=== PATIENT | male | born 1960 | race Caucasian/White ===

== ENCOUNTER 2020-05-07 07:40 | Outpatient (CLI) | payer BC, SELFPAY ==
[2020-05-07 08:26] LABS: Alanine Aminotransferase 33 U/L (4-50); Albumin Level 3.9 g/dL (3.5-5.1); Alkaline Phosphatase 47 U/L (38-126); Anion Gap 8.9 mmol/L (7-16); Aspartate Amino Transferase 35 U/L (17-59); Bilirubin,Total 0.5 mg/dL (0.2-1.3); Blood Urea Nitrogen 14 mg/dL (9-20); Calcium 8.6 mg/dL (8.4-10.2); Carbon Dioxide 26 mmol/L (22-30); Chloride 106 mmol/L (98-107); Cholesterol 201 mg/dL (0-200); Estimated Glomerular Filt Rate > 60; Glucose 94 mg/dL (75-110); HDL Direct 56 mg/dL; Potassium 3.9 mmol/L (3.4-5.0); Sodium 137 mmol/L (137-145); Triglycerides 106 mg/dL (<150)
[2020-05-07 08:37] LABS: LDL Cholesterol Direct 112 mg/dL
== END 2020-05-07 07:41 | disposition home or self-care (01) ==
PROVIDERS: PCP Family Medicine; Visit Provider Internal Medicine Cardiovascular Disease
DX: E78.5 Hyperlipidemia, unspecified (principal)
CPT/HCPCS: 36415; 80053; 80061

== ENCOUNTER 2021-03-21 06:52 | Outpatient (CLI) | payer BC, SELFPAY ==
[2021-03-21 09:33] LABS: Alanine Aminotransferase 19 U/L (4-50); Albumin Level 3.9 g/dL (3.5-5.1); Alkaline Phosphatase 47 U/L (38-126); Anion Gap 6 mmol/L (8-16); Aspartate Amino Transferase 29 U/L (17-59); Bilirubin,Total 0.5 mg/dL (0.2-1.3); Blood Urea Nitrogen 14 mg/dL (9-20); Calcium 9.2 mg/dL (8.4-10.2); Carbon Dioxide 27 mmol/L (22-30); Chloride 107 mmol/L (98-107); Cholesterol 197 mg/dL (0-200); Estimated Glomerular Filt Rate > 60; Glucose 89 mg/dL (75-110); HDL Direct 54 mg/dL; Sodium 140 mmol/L (137-145); Triglycerides 85 mg/dL (<150)
[2021-03-21 09:44] LABS: LDL Cholesterol Direct 106 mg/dL
== END 2021-03-21 06:53 | disposition home or self-care (01) ==
PROVIDERS: PCP Family Medicine; Visit Provider Physician Assistant
DX: E78.5 Hyperlipidemia, unspecified (principal); I10 Essential (primary) hypertension; Z12.5 Encounter for screening for malignant neoplasm of prostate
CPT/HCPCS: 36415; 80053; 80061; 84153; G0103

== ENCOUNTER 2022-05-27 06:51 | Outpatient (CLI) | payer BC, SELFPAY ==
[2022-05-27 07:31] LABS: Alanine Aminotransferase 36 U/L (6-50); Albumin Level 4.1 g/dL (3.5-5.1); Alkaline Phosphatase 53 U/L (38-126); Anion Gap 6 mmol/L (8-16); Aspartate Amino Transferase 32 U/L (17-59); Bilirubin,Total 0.8 mg/dL (0.2-1.3); Blood Urea Nitrogen 16 mg/dL (9-20); Calcium 9.4 mg/dL (8.4-10.2); Carbon Dioxide 28 mmol/L (22-30); Chloride 102 mmol/L (98-107); Cholesterol 240 mg/dL (0-200); Estimated Glomerular Filt Rate > 60; Glucose 90 mg/dL (65-110); HDL Direct 58 mg/dL; Magnesium 2.3 mg/dL (1.6-2.3); Potassium 4.1 mmol/L (3.4-5.0); Sodium 136 mmol/L (137-145); Triglycerides 139 mg/dL (<150)
[2022-05-27 07:45] LABS: LDL Cholesterol Direct 127 mg/dL
== END 2022-05-27 06:52 | disposition home or self-care (01) ==
LOC: ANHLAB 06:53
PROVIDERS: PCP Family Medicine; Visit Provider Internal Medicine Cardiovascular Disease
DX: E78.5 Hyperlipidemia, unspecified (principal)
CPT/HCPCS: 36415; 80053; 80061; 83735

== ENCOUNTER 2022-12-31 06:50 | Outpatient (CLI) | payer BC, SELFPAY ==
--- NOTE | ~2022-12-31 | XR_ITS ---
Left Knee Technique: AP, lateral, and sunrise views were obtained. Clinical History: Pain Findings: No fracture or dislocation is seen. Osseous alignment is anatomic. Minimal patellar spurrin g noted. Soft tissues are unremarkable. No joint effusion is seen. Impression: Minimal patellar spurring. Reviewed, dictated and finalized at location . Impression: Minimal patellar spurring.
[2022-12-31 07:53] LABS: Alanine Aminotransferase 28 U/L (6-50); Alkaline Phosphatase 63 U/L (38-126); Anion Gap 4 mmol/L (8-16); Aspartate Amino Transferase 28 U/L (17-59); Bilirubin,Total 0.6 mg/dL (0.2-1.3); Blood Urea Nitrogen 16 mg/dL (9-20); Calcium 8.7 mg/dL (8.4-10.2); Carbon Dioxide 28 mmol/L (22-30); Chloride 106 mmol/L (98-107); Cholesterol 201 mg/dL (0-200); Estimated Glomerular Filt Rate > 60; Glucose 87 mg/dL (65-110); HDL Direct 54 mg/dL; Potassium 4.2 mmol/L (3.4-5.0); Sodium 138 mmol/L (137-145); Triglycerides 130 mg/dL (<150)
[2022-12-31 07:58] LABS: Appearance Urine Clear (Clear); Bilirubin Urine Negative (Negative); Blood Urine Negative (Negative); Color Urine Yellow (Yellow); Glucose Urine UA Negative (Negative); Ketones Urine Negative (Negative); Leukocyte Esterase Ur Negative LEU/UL (Negative); Nitrate Urine Negative (Negative); Protein Urine Negative (Negative); Urobilinogen Urine 0.2 mg/dL (<2.0)
[2022-12-31 08:03] LABS: LDL Cholesterol Direct 108 mg/dL
[2022-12-31 08:13] LABS: Add Urine Microscopic? NO
[2022-12-31 08:22] LABS: Prostate Specific Antigen 2.4 ng/mL (< OR = 4.0)
[2023-01-07 08:50] LABS: Testosterone Free 55.3 pg/mL (35.0-155.0); Testosterone Total 559 ng/dL (250-1100)
== END 2022-12-31 06:51 | disposition home or self-care (01) ==
PROVIDERS: PCP Family Medicine; Visit Provider Physician Assistant
DX: M25.569 Pain in unspecified knee (principal); Z13.1 Encounter for screening for diabetes mellitus; Z12.5 Encounter for screening for malignant neoplasm of prostate; R35.0 Frequency of micturition; E29.1 Testicular hypofunction; Z13.220 Encounter for screening for lipoid disorders
CPT/HCPCS: 36415; 73562; 80053; 80061; 81003; 84153; 84402; 84403; G0103

== ENCOUNTER 2024-01-06 06:47 | Outpatient (CLI) | payer BC, SELFPAY ==
[2024-01-06 07:51] LABS: Alanine Aminotransferase 20 U/L (6-50); Alkaline Phosphatase 52 U/L (38-126); Anion Gap 5 mmol/L (4-12); Aspartate Amino Transferase 24 U/L (17-59); Bilirubin,Total 0.7 mg/dL (0.2-1.3); Blood Urea Nitrogen 14 mg/dL (9-20); Calcium 9.2 mg/dL (8.4-10.2); Carbon Dioxide 28 mmol/L (22-30); Chloride 104 mmol/L (98-107); Cholesterol 200 mg/dL (0-200); Estimated Glomerular Filt Rate > 60; Glucose 88 mg/dL (65-110); HDL Direct 51 mg/dL; Potassium 3.9 mmol/L (3.4-5.0); Sodium 137 mmol/L (137-145); Triglycerides 157 mg/dL (<150)
[2024-01-06 08:02] LABS: LDL Cholesterol Direct 115 mg/dL
[2024-01-06 08:20] LABS: Prostate Specific Antigen 2.5 ng/mL (< OR = 4.0)
== END 2024-01-06 06:48 | disposition home or self-care (01) ==
LOC: ANHLAB 06:49
PROVIDERS: PCP Family Medicine; Visit Provider Physician Assistant
DX: Z13.1 Encounter for screening for diabetes mellitus (principal); Z13.220 Encounter for screening for lipoid disorders; Z12.5 Encounter for screening for malignant neoplasm of prostate
CPT/HCPCS: 36415; 80053; 80061; 84153; G0103

== ENCOUNTER 2025-01-09 10:38 | Outpatient (CLI) | payer BC, SELFPAY ==
--- NOTE | ~2025-01-09 | XR_ITS ---
XR hip BI 2V w AP pelvis 01/09/2025 11:14 Indication: Hip pain Procedure: AP pelvis and 2 views each hip Comparison: 04/01/2018 Findings: There is osteoarthritis of the hips, moderate on the right and mild on the left. Pelvic rin gs are intact. There is lower lumbar spondylosis. Impression: 1: Bilateral osteoarthritis of the hips, right greater than left. Reviewed, dictated and finalized at location A. Impression: 1: Bilateral osteoarthritis of the hips, right greater than left.
[2025-01-09 11:31] LABS: Basophils Percent Auto 0.6 % (0.2-1.2); Eosinophils Absolute Auto 0.2 K/mm3 (0-0.3); Eosinophils Percent Auto 2.9 % (0-4.4); Hematocrit 44.6 % (42.0-52.0); Hemoglobin 15.5 g/dL (14.0-18.0); Immature Granulocyte Absolute 0.02 K/mm3 (0.00-0.031); Immature Granulocyte Percent A 0.3 % (0-0.5); Lymphocytes Absolute Auto 1.21 K/mm3 (0.9-3.2); Lymphocytes Percent Auto 18.3 % (18.3-44.2); Mean Corpuscular HGB Conc 34.8 g/dl (32-36); Mean Corpuscular Hemoglobin 30.1 pg (26-34); Mean Corpuscular Volume 86.6 fl (80-100); Mean Platelet Volume 9.6 fl (7.4-10.4); Monocytes Absolute Auto 0.5 K/mm3 (0.1-0.6); Monocytes Percent Auto 7.1 % (2.6-8.5); Neutrophils Absolute Auto 4.7 K/mm3 (1.3-6.7); Neutrophils Percent Auto 70.8 % (45.5-73.1); Platelet Count Result 194 k/mm3 (150-375); Red Blood Count 5.15 M/mm3 (4.6-6.20); Red Cell Distribution Width 13.4 % (11.5-14.5); White Blood Count 6.6 K/mm3 (4.5-10.0)
[2025-01-09 11:44] LABS: Alanine Aminotransferase 25 U/L (6-50); Albumin Level 4.3 g/dL (3.5-5.1); Alkaline Phosphatase 70 U/L (38-126); Anion Gap 6 mmol/L (4-12); Aspartate Amino Transferase 32 U/L (17-59); Bilirubin,Total 0.9 mg/dL (0.2-1.3); Blood Urea Nitrogen 13 mg/dL (9-20); Calcium 9.3 mg/dL (8.4-10.2); Carbon Dioxide 26 mmol/L (22-30); Chloride 105 mmol/L (98-107); Cholesterol 218 mg/dL (0-200); Estimated Glomerular Filt Rate > 60; Glucose 88 mg/dL (65-110); HDL Direct 62 mg/dL; Sodium 137 mmol/L (137-145); Triglycerides 168 mg/dL (<150)
[2025-01-09 11:53] LABS: Rheumatoid Factor < 12.0 IU/ML (<12)
[2025-01-09 11:55] LABS: LDL Cholesterol Direct 107 mg/dL
[2025-01-09 11:58] LABS: Hemoglobin A1C 5.2 % (<5.7)
[2025-01-09 12:14] LABS: Prostate Specific Antigen 2.1 ng/mL (< OR = 4.0)
[2025-01-10 16:58] LABS: Anti Cyclic Citrullinated Pept <16 UNITS
== END 2025-01-09 10:39 | disposition home or self-care (01) ==
LOC: ANHLAB 10:39
PROVIDERS: PCP Family Medicine; Visit Provider Student in an Organized Health Care Education/Training Program
DX: M16.0 Bilateral primary osteoarthritis of hip (principal); I10 Essential (primary) hypertension; E78.5 Hyperlipidemia, unspecified; R53.83 Other fatigue; M25.50 Pain in unspecified joint; Z82.61 Family history of arthritis; Z13.1 Encounter for screening for diabetes mellitus; Z12.5 Encounter for screening for malignant neoplasm of prostate
CPT/HCPCS: 36415; 73521; 80053; 80061; 83036; 84153; 85025; 86038; 86200; 86430; G0103

== ENCOUNTER 2025-01-15 07:42 | Outpatient (CLI) | payer BC, SELFPAY ==
--- NOTE | ~2025-01-15 | US_ITS ---
Posterior right neck ULTRASOUND (Doppler ultrasound interrogation techniques used as needed for this exam.) Ordering provider: Hailey Foss PA-C History: . R22.1 - Localized swelling, mass and lump, neck . Comparison: None. FINDINGS/impression: Isoechoic area measuring 2.6 x 1.1 x 3.9 cm is noted. This most likely represent a lipoma. Clinical c orrelation and follow-up advised. Reviewed, dictated and finalized at location A.
== END 2025-01-15 07:43 | disposition home or self-care (01) ==
LOC: MICIMG 07:42
PROVIDERS: PCP Family Medicine; Visit Provider Student in an Organized Health Care Education/Training Program
DX: R22.1 Localized swelling, mass and lump, neck (principal)
CPT/HCPCS: 76536

== ENCOUNTER 2025-02-07 08:07 | Outpatient (CLI) | payer BC, SELFPAY ==
--- NOTE | 2025-02-07 08:20 | ECG_ITS ---
Test Date: 2025-02-07 08:30:37 Measurements Intervals [place] Rate: 63 P: 12 [place]: 209 QRS: -36 QRSD: 111 T: 20 QT: 411 QTc: 422 Interpretive Statements SINUS RHYTHM WITH FIRST DEGREE AV BLOCK WITH OCCASIONAL VENTRICULAR PREMATURE COMPLEXES LEFT AXIS DEVIATION INCOMPLETE RIGHT BUNDLE BRANCH BLOCK BORDERLINE T WAVE ABNORMALITY- INFERIOR LEADS BASELINE ARTIFACT- V1 BORDERLINE ECG No previous ECG available for comparison Electronically Signed On 02-07-2025 09:16:49 CDT by Sam Larry D.O.
== END 2025-02-07 08:08 | disposition home or self-care (01) ==
PROVIDERS: PCP Family Medicine; Visit Provider Anesthesiology
DX: E78.5 Hyperlipidemia, unspecified (principal); I10 Essential (primary) hypertension; I45.10 Unspecified right bundle-branch block
CPT/HCPCS: 93005

== ENCOUNTER 2025-02-19 00:51 | Day surgery (SDC) | payer BC, SELFPAY ==
[2025-02-06 14:42] VITALS: BMI 32.3
--- NOTE | 2025-02-06 15:18 | PC.NURSE ---
Report to the Outpatient Waiting Room, entrance under the green pavilion located off [facility], at time __0630AM on date Wednesday02/19/25 . Planned Procedure Time: _0830AM .? Time changes happen often and if your time is changed the preop area will call you the afternoon before. - You and your visitor will be asked to self-screen and do not enter if you have any COVID symptoms. Please call surgeon if you need to reschedule. - A mask is optional within the hospital at this time. Patients may have clear liquids (water, carbonated beverages, clear teas, apple juice) until 3 hours prior to surgery with a maximum of 20 ounces. - No food from midnight until time of surgery and no smoking, or chewing tobacco (or any form of nicotine). No chewing gum, candy or mints. Take only the following medications with a SIP of water on the morning of surgery: ___NONE DO NOT STOP ANY OF YOUR OTHER PRESCRIPTION MEDICATIONS PRIOR TO SURGERY EXCEPT THE FOLLOWING Hold all vitamins and supplements for 3 days per anesthesiologist. Medications to discontinue per physician N/A Date to take last dose N/A Please no make-up, nail slovenian, hairspray, perfume, deodorant, or body powder the day of surgery.? No jewelry (including any body piercings) or valuables the day of surgery, leave them at home.? Please take a shower or bath the night before, or the morning of, surgery with an antibacterial soap.? Wear comfortable, loose fitting clothing.? - Jewelry must be removed prior to entering the operating room.? Rings and piercings that are not removed may be cut off. - The hospital will not accept responsibility for valuables.? - Please leave all valuables, including medications, at home the day of surgery. If you are going home after surgery, a licensed route salesman and driver must drive you home.? - NO public transportation without another adult if you receive anesthesia. - We recommend that an adult stay with you for 24 hours following discharge. - We also recommend that you do not drive, make important decision, drink alcoholic beverages, or take any drugs that were not prescribed by your health care provider for at least 24 hours after your discharge time. Follow any additional instructions given to you from your surgeon. Telephone instructions given to __FABIÁN and asked if any additional questions and then verbalized understanding. Patient advised to call surgeon office or pre surgery nurse liaison [phone] if any additional questions.
[2025-02-19] VITALS (7 sets, daily range): BP systolic 122–143; BP diastolic 71–84; PULSE 57–70; RESP 14–20; TEMP 36.6–36.9; O2SAT 96–100
--- NOTE | 2025-02-19 07:12 | WPDHPUPDATE1 ---
History and Physical Update Update Date/Time: 02/19/25 07:12 History and Physical has been reviewed, including an updated exam of the patient. There are NO changes in the patient's condition. Risks, benefits, and alternatives have been discussed and questions answered. Patient agrees to proceed with procedure.
--- NOTE | 2025-02-19 08:21 | WPDANESEPPF ---
Anes - Initial Pre Proc Eval Procedure: Operation Date: 02/19/25 08:30 Proposed Procedures p Excisional Biopsy of Right Posterior Neck and Left Forearm Subcutaneous Mass Times Two - Inna Rodriguez MD Date/Time: 02/19/25 08:21 Surgeon: Inna Rodriguez MD Pre Op Diagnosis: ri post. neck sub-q mass, left forearm sub-q mass Patient Data Age: 65 Gender: M Height: 1.83 m Weight: 105.6 kg Last Vital Signs Temp 36.9 C 02/19/25 07:15 Pulse 60 02/19/25 07:15 Resp 16 02/19/25 07:15 BP 143/84 H 02/19/25 07:15 Pulse Ox 97 02/19/25 07:15 O2 Del Method Room Air 02/19/25 07:15 Allergies Allergy/AdvReac Type Severity Reaction Status Date / Time NKA Allergy Unknown Unknown Uncoded 02/19/25 07:54 NKFA Allergy Unknown Unknown Uncoded 02/19/25 07:54 Home Medications ?Medication ?Instructions ?Recorded ?Confirmed ?Type jvtnhgprlpcl-itm-mpead acid-vit 1 tablet PO DAILY 10/26/19 02/19/25 History K-lycop 400 mcg-20 mcg-370 mcg tablet (Men's 50 Plus Daily Formula) omega-3 fatty acids-fish oil 360 1 cap PO DAILY 10/26/19 02/19/25 History mg-1,200 mg capsule (Fish Oil) glucosamine CAf-J0-Hutvjbopi 2 tablet PO DAILY 01/16/20 02/19/25 History otis 1,500 mg-400 unit-100 mg tablet (Glucosamine Daily Complex) losartan 100 mg tablet 100 mg PO DAILY #90 tabs 03/27/24 02/06/25 Rx pravastatin 20 mg tablet See Rx Instructions .Route 09/01/24 02/06/25 Rx .COMPLEX #90 tabs hydrochlorothiazide 25 mg tablet 25 mg PO DAILY #90 tabs 09/22/24 02/06/25 Rx vitamin E 1,000 unit tablet 1 tablet PO DAILY 02/06/25 02/19/25 History Patient hx anesthesia problems: none Family hx anesthesia problems: none Results Review: All pre-operative results and documents have been reviewed as part of the pre-operative evaluation. [facility] Past Medical History Medical History Arthritis Bilateral hip pain Normal colonoscopy (~05/2014) Hyperlipidemia Hypertension Surgical History Surgical History History of tonsillectomy Family History Family History Father Hypertension Family history of chronic obstructive pulmonary disease Family history of congestive heart failure Mother Patient's mother is in good health Cerebrovascular accident Hypertension Grandparent Hypertension Other Family history of malignant neoplasm of skin Social History Social History Smoking status: Former smoker Smokeless tobacco user: chewing tobacco Second hand tobacco smoke exposure: No Smoking end date: 10/11/82 Additional smoking assessment comments: Chewed tobacco as a teen, quit 35+ years ago. Alcohol intake: current Drinks per week: 4 Alcohol use details: Couple drinks once a week. Substance use: never Substance use type: does not use Do You Feel Safe in your Home?: Yes Lack of Transportation: No Lack of Food: Never True Current Housing: I Have Housing Concerned About Future Housing: No Difficulty Paying Gas/Electric Bills: No Difficulty Paying for Meds: No Currently Unemployed: No Education: Master's Degree or Higher Difficulty w/ Childcare or Family Care: No Living arrangements: with family Occupation/Education: occupation Gender identity (if verbalized by the patient): Male Spiritual care concerns: No Agree to blood products: Yes Anes - Eval Final PreProcedure Day of Procedure 02/19/25 08:21 Patient weight: obese Heart: regular rate and rhythm Lungs: clear to auscultation Airway: Mallampati scale class II Neurological: alert and oriented Last oral intake: >/= 8 hours ASA classification: III Emergent: no Anesthetic plan: proceed Anesthesia type and monitoring: general GIVS and standard monitoring Results Review: All pre-operative results and documents have been reviewed as part of the pre-operative evaluation. Informed Consent: The patient's anesthetic plan and its attendant risks and benefits were discussed with the patient/family/POA. Questions were solicited and answers provided to the satisfaction of the patient/family/POA.
[2025-02-19] MEDS: ceFAZolin 2 GM/D5W 50 ML 2 GM/50 ML BAG IVPB (08:44)
[2025-02-19] MEDS: BUPIVACAINE/EPINEPHRINE 0.5% 10 ML VIAL 20 ML INFILTRATE (09:19)
--- NOTE | 2025-02-19 09:25 | W.PM.PROC2 ---
Procedure Note - Detailed Date of Procedure 02/19/25 Pre-op Diagnosis Right posterior subcutaneous neck mass, left forearm subcutaneous mass Post-op Diagnosis Same Procedure Performed excisional biopsy right posterior subcutaneous neck mass measuring 4 x 2 cm, left forearm subcutaneous mass measuring 2 x 1.5 cm Surgeon Inna Rodriguez MD Anesthesia General and Local Indications 65-year-old male presenting to the office with right posterior neck subcutaneous mass. The patient reports that this has been slowly growing over time and now somewhat symptomatic. The patient also with noted left forearm mass. Findings 4 x 2 cm right posterior neck subcutaneous mass most consistent with lipoma, left forearm subcutaneous mass measuring 2 x 1.5 cm most consistent with lipoma Description of Procedure The patient was taken to the operating room and placed in the lateral position. After adequate induction of general anesthesia, the patient was prepped and draped in the normal sterile fashion. A time-out was then done to verify the patient's identity, as well as the procedure being performed. I began by localizing the area in and around these masses in the right posterior neck and left forearm. I then made an incision with the 11 blade scalpel over the area the right neck mass. This was carried down through the dermis and into the subcutaneous. A well encapsulated mass was noted in the subcutaneous tissue. This was most consistent with a lipoma. I was able to excise this mass in full. The mass was all contained within the subcutaneous tissue. After excision, this measured at 4 x 2 cm. It will be sent to pathology for further review. I then copiously irrigated the cavity. Hemostasis was gained with the Bovie cautery. I then closed the subcutaneous tissue with 3-0 Vicryl suture. The skin was closed with 4-0 Monocryl subcuticular suture. I then used 11 blade scalpel to make incision in the dermis over the left forearm mass. Again this was carried down into the subcutaneous tissue. The mass was located completely within the subcutaneous tissue and completely excised. After excision, this area measured 2 x 1.5 cm. It will be sent to pathology for further review. I then copiously irrigated the cavity and hemostasis was gained with the Bovie cautery. The subcutaneous tissue was then closed with 3-0 Vicryl suture. The skin was closed with 4-0 Monocryl subcuticular suture. Dermabond was placed on all wounds. The patient tolerated the procedure well and was extubated postoperatively. He will be transferred to the recovery room in stable condition. Estimated Blood Loss 5 Pathology Yes Complications No immediate complications Condition Stable Disposition PACU [facility] Billing Surgery - Charge Forward: Surgery Billing
[2025-02-19] MEDS: LACTATED RINGERS 1,000 ML 30 ML IV CONT (09:38)
== END 2025-02-19 10:55 | disposition home or self-care (01) ==
PROVIDERS: PCP Family Medicine; Visit Provider Surgery
PROC: (CPT 25071; principal; 2025-02-19 08:30)
DX: D17.0 Benign lipomatous neoplasm of skin and subcutaneous tissue of head, face and neck (principal); D17.22 Benign lipomatous neoplasm of skin and subcutaneous tissue of left arm; Z87.891 Personal history of nicotine dependence; E66.9 Obesity, unspecified; Z68.31 Body mass index [BMI] 31.0-31.9, adult
CPT/HCPCS: 25071; 21552; 88304; J0690; J1100; J2003; J2250; J2405; J2704; J7120

== ENCOUNTER 2025-07-11 07:24 | Outpatient (CLI) | payer BC, SELFPAY ==
[2025-07-11 08:12] LABS: Alanine Aminotransferase 25 U/L (6-50); Albumin Level 3.9 g/dL (3.5-5.1); Alkaline Phosphatase 59 U/L (38-126); Anion Gap 4 mmol/L (4-12); Aspartate Amino Transferase 32 U/L (17-59); Bilirubin,Total 0.5 mg/dL (0.2-1.3); Blood Urea Nitrogen 16 mg/dL (9-20); Calcium 8.7 mg/dL (8.4-10.2); Carbon Dioxide 26 mmol/L (22-30); Chloride 106 mmol/L (98-107); Cholesterol 218 mg/dL (0-200); Estimated Glomerular Filt Rate > 60; Glucose 89 mg/dL (65-110); HDL Direct 63 mg/dL; Potassium 4.1 mmol/L (3.4-5.0); Sodium 136 mmol/L (137-145); Total Protein 6.6 g/dL (6.3-8.2); Triglycerides 118 mg/dL (<150)
== END 2025-07-11 07:25 | disposition home or self-care (01) ==
PROVIDERS: PCP Family Medicine Adolescent Medicine; Visit Provider Student in an Organized Health Care Education/Training Program
DX: E78.5 Hyperlipidemia, unspecified (principal); I10 Essential (primary) hypertension
CPT/HCPCS: 36415; 80053; 80061